=== PATIENT | female | born 1955 | race Caucasian/White ===

== ENCOUNTER → 2019-01-22 | Outpatient (CLI) | payer BC, OTHER | LOC: EDSTATUS 11:00 → PT 11:00 | DX: Z01.818 Encounter for other preprocedural examination (principal) ==

== ENCOUNTER 2019-03-12 09:00 | Outpatient (RCR) | payer BC, OTHER | END 2019-03-12 09:30 | disposition still patient (30) | LOC: PT 09:00 | DX: Z47.1 Aftercare following joint replacement surgery (principal); Z96.652 Presence of left artificial knee joint ==

== ENCOUNTER 2019-03-26 09:30 | Outpatient (RCR) | payer OTHER | END 2019-03-26 10:00 | disposition still patient (30) | LOC: PT 09:30 | DX: Z47.1 Aftercare following joint replacement surgery (principal); Z96.659 Presence of unspecified artificial knee joint ==

== ENCOUNTER 2019-05-02 09:00 | Outpatient (RCR) | payer OTHER | END 2019-05-02 09:30 | disposition still patient (30) | LOC: OT 09:00 | DX: S52.125A Nondisplaced fracture of head of left radius, initial encounter for closed fracture (principal); S52.124A Nondisplaced fracture of head of right radius, initial encounter for closed fracture ==

== ENCOUNTER 2023-01-25 08:00 | Outpatient (RCR) | payer MEDICARE, BC ==
[~2023-01-25 08:00] MED LIST: AMLODIPINE BESYL5 MG PO; BASAGLAR K100 UNIT/1 SQ; DULOXETINE60 MG PO; ESTRADIOL PO; LATANOPROST 2.2.5 ML OU; LOSARTAN POTASS1 TA4 PO; MACROBID 100 M100 MG PO; METFORMIN HCL500 M3; NORET PO; PRILOSEC 20MG20 MG PO; SINGULAIR 110 MG/TAB PO; VICTOZA 3-0.6 MG/0.1 SQ
== END 2023-02-23 | disposition home or self-care (01) ==
LOC: PT
DX: M54.50 Low back pain, unspecified (principal)